=== PATIENT | male | born 1945 | race Caucasian/White ===

== ENCOUNTER → 2020-12-05 | Outpatient (CLI) | payer OTHER ==
[~2020-12-05] MED LIST: ALLO10TA PO; AMLO10TA PO; GLIP5TAB20 PO; IRON65TA2 PO; JARD1TAB3 PO; LANTINJ4 SC; LOSA100T50 PO; NESI12.5 PO; OMEGCAP4 PO; OMEP-218 PO; ROSU20TA5 PO; SODI650T PO
== END ==
LOC: M LABSMTC 09:07
PROVIDERS: ATTEND Anesthesiology
DX: Z20.828 Contact with and (suspected) exposure to other viral communicable diseases (principal); Z11.52 Encounter for screening for COVID-19

== ENCOUNTER 2020-12-10 07:26 | Day surgery (SDC) | payer OTHER ==
[~2020-12-10] VITALS: Ht 175.3 cm; Wt 72.6 kg
[~2020-12-10 07:26] MED LIST changes: +NS 1,000 ML IV ONE
[2020-12-10] MEDS ORDERED: propofoL 200 MG/20 ML VIAL As Ordered ONE (08:48)
[2020-12-10] MEDS ORDERED: LIDOCAINE 2% 100MG/5ML SDV (FOR ANES.) As Ordered ONE (08:48)
--- NOTE | 2020-12-10 09:21 | ROOR ---
Patient Name: Harshil Trotter Procedure Date: 12/10/2020 8:52 AM Date of : 1945 Age: 75 Room: [facility] Gender: Male Note Status: Finalized Procedure: Colonoscopy Indications: High risk colon cancer surveillance: Personal history of colonic polyps Providers: Epi Peterson Jr, MD Referring MD: Epi Peterson Jr, MD Requesting Provider: Medicines: Propofol per Anesthesia Complications: No immediate complications. Procedure: Pre-Anesthesia Assessment: - Prior to the procedure, a History and Physical was performed, and patient medications and allergies were reviewed. The patient is competent. The risks and benefits of the procedure and the sedation options and risks were discussed with the patient. All questions were answered and informed consent was obtained. Patient identification and proposed procedure were verified by the physician and the nurse in the pre-procedure area and in the procedure room. Mental Status Examination: alert and oriented. Airway Examination: normal oropharyngeal airway and neck mobility. Respiratory Examination: clear to auscultation. CV Examination: normal. ASA Grade Assessment: II - A patient with mild systemic disease. After reviewing the risks and benefits, the patient was deemed in satisfactory condition to undergo the procedure. The anesthesia plan was to use moderate sedation / analgesia (conscious sedation). Immediately prior to administration of medications, the patient was re-assessed for adequacy to receive sedatives. The heart rate, respiratory rate, oxygen saturations, blood pressure, adequacy of pulmonary ventilation, and response to care were monitored throughout the procedure. The physical status of the patient was re-assessed after the procedure. The Colonoscope was introduced through the anus and advanced to the cecum, identified by appendiceal orifice and ileocecal valve. The patient tolerated the procedure well. The quality of the bowel preparation was fair. Findings: The rectum, recto-sigmoid colon, cecum and ileocecal valve appeared normal. Many small and large-mouthed diverticula were found in the sigmoid colon. Six polyps were found in the descending colon, transverse colon and ascending colon. The polyps were small in size. These polyps were removed with a hot snare. Resection and retrieval were complete. Impression: - Preparation of the colon was fair. - The rectum, recto-sigmoid colon, cecum and ileocecal valve are normal. - Diverticulosis in the sigmoid colon. - Six small polyps in the descending colon, in the transverse colon and in the ascending colon, removed with a hot snare. Resected and retrieved. Recommendation: - Discharge patient to home (ambulatory). - Repeat colonoscopy in 5 years for surveillance. Procedure Code(s): --- Professional --- 66629, Colonoscopy, flexible; with removal of tumor(s), polyp(s), or other lesion(s) by snare technique Diagnosis Code(s): --- Professional --- Z86.010, Personal history of colonic polyps K63.5, Polyp of colon K57.30, Diverticulosis of large intestine without perforation or abscess without bleeding CPT copyright 2019 [employer]. All rights reserved. The codes documented in this report are preliminary and upon fibre cement moulder review may be revised to meet current compliance requirements. Epi Peterson MD Epi Peterson Jr, MD 12/10/2020 9:21:31 AM Electronically signed by Epi Peterson Jr, MD Number of Addenda: 0 Note Initiated On: 12/10/2020 8:52 AM Estimated Blood Loss: Estimated blood loss: none.
[2020-12-10 09:49] VITALS: BP 131/59
== END 2020-12-10 10:05 | disposition home or self-care (01) ==
LOC: M OPP 07:26
PROVIDERS: ATTEND Surgery
DX: Z12.11 Encounter for screening for malignant neoplasm of colon (principal); Z86.010 Personal history of colon polyps; D12.6 Benign neoplasm of colon, unspecified; K57.30 Diverticulosis of large intestine without perforation or abscess without bleeding; E11.9 Type 2 diabetes mellitus without complications; Z79.4 Long term (current) use of insulin; Z79.899 Other long term (current) drug therapy; F17.210 Nicotine dependence, cigarettes, uncomplicated

== ENCOUNTER → 2021-11-05 | Outpatient (REF) | payer MEDICARE, OTHER ==
[~2021-11-05] MED LIST changes: +LOSA100T45 PO; -LOSA100T50 PO; -NS 1,000 ML IV ONE; +OMEP-173 PO; -OMEP-218 PO
[2021-11-05 15:43] LABS: SOURCE, BODY FLUID RT KNEE
[2021-11-05 15:44] LABS: SYNOVIAL FLUID COLOR BROWN (COLORLESS)
[2021-11-05 15:48] LABS: CRYSTALS, BODY FLUID NONE SEEN (NONE SEEN); SOURCE, BODY FLUID CRYSTALS RT KNEE
[2021-11-05 17:37] LABS: SOURCE, BODY FLUID GLUCOSE RT KNEE
== END ==
LOC: M LAB REF 15:14
PROVIDERS: ATTEND Physician Assistant Surgical
DX: M25.461 Effusion, right knee (principal)

== ENCOUNTER → 2022-02-04 | Outpatient (CLI) | payer MEDICARE, OTHER ==
[2022-02-04 09:35] LABS: MEAN CORPUSCULAR HEMOGLOBIN 30.3 pg (27.0-33.0); MEAN CORPUSCULAR HGB CONC 31.6 g/dl (32.0-36.5); PLATELET COUNT, AUTOMATED 318 10^3/uL (150-450); RED BLOOD COUNT 3.96 10^6/uL (4.30-6.10); WHITE BLOOD COUNT 7.3 10^3/uL (4.0-10.0)
[2022-02-04 09:46] LABS: INR 0.99; PROTHROMBIN TIME 13.3 SECONDS (12.5-14.5)
[2022-02-04 09:58] LABS: BILIRUBIN,TOTAL 0.3 MG/DL (0.3-1.2); CALCIUM LEVEL 9.1 MG/DL (8.3-10.6); CREATININE FOR GFR 2.18 MG/DL (0.70-1.30); GLOMERULAR FILTRATION RATE 31.5 (>42); TOTAL PROTEIN 7.5 G/DL (5.7-8.2)
[2022-02-04 10:14] LABS: ERYTHROCYTE SEDIMENTATION RATE 50 mm/hr (0-20)
== END ==
LOC: M RAD 08:35
PROVIDERS: ATTEND Orthopaedic Surgery
DX: M17.11 Unilateral primary osteoarthritis, right knee (principal); M25.551 Pain in right hip; M25.461 Effusion, right knee

== ENCOUNTER → 2025-02-07 | Outpatient (CLI) | payer OTHER, MEDICARE ==
[~2025-02-07] MED LIST changes: +ALOG6.25 PO; +AMLO-751 PO; -AMLO10TA PO; +ASPI-226 PO; +ATOR80TA59 PO; +GLIP-318 PO; -GLIP5TAB20 PO; -LOSA100T45 PO; +LOSA100T46 PO; -ROSU20TA5 PO; +ROSU20TA86 PO
== END ==
LOC: M RAD 13:25
PROVIDERS: ATTEND Nurse Practitioner Family
DX: Z12.2 Encounter for screening for malignant neoplasm of respiratory organs (principal); F17.219 Nicotine dependence, cigarettes, with unspecified nicotine-induced disorders; I25.10 Atherosclerotic heart disease of native coronary artery without angina pectoris; R91.8 Other nonspecific abnormal finding of lung field

== ENCOUNTER → 2025-02-14 | Outpatient (CLI) | payer OTHER, MEDICARE | LOC: M RAD 10:00 | PROVIDERS: ATTEND Nurse Practitioner Family | DX: I65.29 Occlusion and stenosis of unspecified carotid artery (principal); N18.4 Chronic kidney disease, stage 4 (severe) ==